=== PATIENT | male | born 1945 | race Caucasian/White ===

== ENCOUNTER → 2017-11-06 | Outpatient (REF) | payer MEDICARE, BC ==
[2017-11-06 11:47] LABS: INR 1.61; PROTHROMBIN TIME 19.6 SECONDS (12.4-14.5)
== END ==
LOC: M SFHCCLAY 09:39
DX: Z79.01 Long term (current) use of anticoagulants (principal); Z95.2 Presence of prosthetic heart valve
CPT/HCPCS: 85610

== ENCOUNTER → 2017-11-14 | Outpatient (REF) | payer MEDICARE, BC ==
[2017-11-14 12:53] LABS: INR 1.25; PROTHROMBIN TIME 15.9 SECONDS (12.4-14.5)
== END ==
LOC: M SFHCCLAY 08:53
DX: Z95.2 Presence of prosthetic heart valve (principal); Z79.01 Long term (current) use of anticoagulants
CPT/HCPCS: 85610

== ENCOUNTER → 2017-11-21 | Outpatient (REF) | payer MEDICARE, BC ==
[2017-11-21 11:37] LABS: INR 1.97; PROTHROMBIN TIME 23.1 SECONDS (12.4-14.5)
== END ==
LOC: M SFHCCLAY 09:10
DX: Z95.2 Presence of prosthetic heart valve (principal)
CPT/HCPCS: 85610

== ENCOUNTER → 2017-11-28 | Outpatient (REF) | payer MEDICARE, BC ==
[2017-11-28 12:04] LABS: INR 2.63; PROTHROMBIN TIME 29.2 SECONDS (12.4-14.5)
== END ==
LOC: M SFHCCLAY 08:20
DX: I48.2 Chronic atrial fibrillation (principal)
CPT/HCPCS: 85610

== ENCOUNTER → 2017-12-12 | Outpatient (REF) | payer MEDICARE, BC | LOC: M SFHCCLAY 09:04 | DX: Z95.2 Presence of prosthetic heart valve (principal) | CPT/HCPCS: 85610 ==

== ENCOUNTER → 2018-01-04 | Outpatient (REF) | payer MEDICARE, BC ==
[2018-01-04 11:23] LABS: INR 1.67; PROTHROMBIN TIME 20.2 SECONDS (12.4-14.5)
== END ==
LOC: M SFHCCLAY 07:19
DX: Z95.2 Presence of prosthetic heart valve (principal)
CPT/HCPCS: 85610

== ENCOUNTER → 2018-03-06 | Outpatient (REF) | payer MEDICARE, BC ==
[2018-03-06 11:45] LABS: INR 2.02; PROTHROMBIN TIME 23.6 SECONDS (12.4-14.5)
== END ==
LOC: M SFHCCLAY 07:23
DX: Z95.2 Presence of prosthetic heart valve (principal); Z79.01 Long term (current) use of anticoagulants
CPT/HCPCS: 85610

== ENCOUNTER → 2018-04-03 | Outpatient (REF) | payer MEDICARE, BC ==
[2018-04-03 12:34] LABS: INR 1.81; PROTHROMBIN TIME 21.5 SECONDS (12.4-14.5)
== END ==
LOC: M SFHCCLAY 07:22
DX: Z51.81 Encounter for therapeutic drug level monitoring (principal); Z95.2 Presence of prosthetic heart valve; I48.2 Chronic atrial fibrillation; Z79.01 Long term (current) use of anticoagulants
CPT/HCPCS: 85610

== ENCOUNTER → 2018-04-17 | Outpatient (REF) | payer MEDICARE, BC | LOC: M SFHCCLAY 06:59 | DX: I48.2 Chronic atrial fibrillation (principal) ==

== ENCOUNTER → 2018-04-24 | Outpatient (REF) | payer MEDICARE, BC ==
[2018-04-24 11:17] LABS: HEMATOCRIT 42.1 % (42.0-52.0); HEMOGLOBIN 14.3 g/dl (13.5-17.5); MEAN CORPUSCULAR HEMOGLOBIN 31.2 pg (27.0-33.0); MEAN CORPUSCULAR VOLUME 91.9 fl (80.0-96.0); PLATELET COUNT, AUTOMATED 175 10^3/uL (150-450); RED BLOOD COUNT 4.58 10^6/uL (4.30-6.10); WHITE BLOOD COUNT 8.3 10^3/uL (4.0-10.0)
[2018-04-24 11:29] LABS: PROTHROMBIN TIME 17.4 SECONDS (12.1-14.4)
[2018-04-24 11:46] LABS: ANION GAP 7 MEQ/L (8-16); BLOOD UREA NITROGEN 24 MG/DL (7-18); CALCIUM LEVEL 8.9 MG/DL (8.8-10.2); CARBON DIOXIDE LEVEL 26 MEQ/L (21-32); CHLORIDE LEVEL 106 MEQ/L (98-107); CHOLESTEROL LEVEL 166 MG/DL (<200); CHOLESTEROL RISK RATIO 2.477 (<5); CREATININE FOR GFR 1.19 MG/DL (0.70-1.30); GLOMERULAR FILTRATION RATE > 60.0 (>42); GLUCOSE, FASTING 91 MG/DL (70-100); HDL CHOLESTEROL 67 MG/DL (>40); NON-HDL-C 99 MG/DL; POTASSIUM SERUM 4.6 MEQ/L (3.5-5.1); SODIUM LEVEL 139 MEQ/L (136-145); TRIGLYCERIDES LEVEL 90 MG/DL (<150)
== END ==
LOC: M SFHCCLAY 07:33
DX: I48.2 Chronic atrial fibrillation (principal); Z51.81 Encounter for therapeutic drug level monitoring; Z79.01 Long term (current) use of anticoagulants; Z95.2 Presence of prosthetic heart valve; Z85.048 Personal history of other malignant neoplasm of rectum, rectosigmoid junction, and anus
CPT/HCPCS: 80061

== ENCOUNTER → 2018-05-08 | Outpatient (REF) | payer MEDICARE, BC ==
[2018-05-08 11:46] LABS: INR 1.79; PROTHROMBIN TIME 21.1 SECONDS (12.1-14.4)
== END ==
LOC: M SFHCCLAY 08:21
DX: I48.2 Chronic atrial fibrillation (principal); Z95.2 Presence of prosthetic heart valve; Z79.01 Long term (current) use of anticoagulants
CPT/HCPCS: 85610

== ENCOUNTER → 2018-05-22 | Outpatient (REF) | payer MEDICARE, BC ==
[2018-05-22 12:21] LABS: PROTHROMBIN TIME 25.8 SECONDS (12.1-14.4)
== END ==
LOC: M SFHCCLAY 07:19
DX: Z79.01 Long term (current) use of anticoagulants (principal)
CPT/HCPCS: 85610

== ENCOUNTER → 2018-07-10 | Outpatient (REF) | payer MEDICARE, BC ==
[2018-07-10 11:44] LABS: INR 1.67
== END ==
LOC: M SFHCCLAY 07:51
DX: Z79.01 Long term (current) use of anticoagulants (principal)
CPT/HCPCS: 85610

== ENCOUNTER → 2018-07-24 | Outpatient (REF) | payer MEDICARE, BC ==
[2018-07-24 11:37] LABS: INR 1.66; PROTHROMBIN TIME 19.9 SECONDS (12.1-14.4)
== END ==
LOC: M SFHCCLAY 07:28
DX: Z51.81 Encounter for therapeutic drug level monitoring (principal); Z79.01 Long term (current) use of anticoagulants
CPT/HCPCS: 85610

== ENCOUNTER → 2018-08-07 | Outpatient (REF) | payer MEDICARE, BC ==
[2018-08-07 12:02] LABS: INR 1.61; PROTHROMBIN TIME 19.4 SECONDS (12.1-14.4)
== END ==
LOC: M SFHCCLAY 09:25
DX: I48.2 Chronic atrial fibrillation (principal); Z79.01 Long term (current) use of anticoagulants; Z95.2 Presence of prosthetic heart valve
CPT/HCPCS: 85610

== ENCOUNTER → 2018-08-21 | Outpatient (REF) | payer MEDICARE, BC ==
[2018-08-21 12:31] LABS: INR 2.24; PROTHROMBIN TIME 25.2 SECONDS (12.1-14.4)
== END ==
LOC: M SFHCCLAY 07:42
DX: I48.2 Chronic atrial fibrillation (principal); Z51.81 Encounter for therapeutic drug level monitoring; Z79.01 Long term (current) use of anticoagulants
CPT/HCPCS: 85610

== ENCOUNTER → 2018-09-18 | Outpatient (REF) | payer MEDICARE, BC ==
[2018-09-18 12:03] LABS: INR 1.88
== END ==
LOC: M SFHCCLAY 08:56
DX: I48.2 Chronic atrial fibrillation (principal); Z79.01 Long term (current) use of anticoagulants; Z95.2 Presence of prosthetic heart valve
CPT/HCPCS: 85610

== ENCOUNTER → 2018-09-19 | Outpatient (CLI) | payer MEDICARE, BC ==
[~2018-09-19] MED LIST: AMLO10TA4 PO; ASPI1TAB PO; IMOD2CHW PO; LISI10TA4 PO; PROBCAP4 PO; TOPR50TA23 PO; VITA100067 PO
--- NOTE | 2018-09-19 10:04 | REP ---
Chest x-ray: Two views. History: Cough and shortness of breath. Comparison chest x-ray: May 20, 2013. Findings: Frontal and lateral views demonstrate that the patient is status post aortic valve replacement via median sternotomy in the interval since the last chest x-ray. A left atrial appendage clamp or clip is also visible. The heart is not enlarged. The aorta is tortuous and somewhat calcific. The lungs are symmetrically aerated and clear. Pleural angles are sharp. There is minimal linear fibrosis in the right lower lateral chest. Impression: No active disease. Status post aortic valve replacement.
== END ==
LOC: M CLY 08:09
PROVIDERS: ATTEND Family Medicine
DX: R05 Cough (principal); R06.02 Shortness of breath; Z95.2 Presence of prosthetic heart valve
CPT/HCPCS: 71046; G0463

== ENCOUNTER → 2018-10-04 | Outpatient (REF) | payer MEDICARE, BC ==
[~2018-10-04] MED LIST changes: -AMLO10TA4 PO; +AMLO10TA5 PO
[2018-10-04 12:01] LABS: INR 2.92; PROTHROMBIN TIME 31.1 SECONDS (12.1-14.4)
== END ==
LOC: M SFHCCLAY 07:33
PROVIDERS: ATTEND Family Medicine
DX: Z79.01 Long term (current) use of anticoagulants (principal)

== ENCOUNTER → 2018-10-18 | Outpatient (REF) | payer MEDICARE, BC ==
[2018-10-18 12:39] LABS: INR 2.37; PROTHROMBIN TIME 26.4 SECONDS (12.1-14.4)
== END ==
LOC: M SFHCCLAY 07:27
PROVIDERS: ATTEND Family Medicine
DX: I48.2 Chronic atrial fibrillation (principal)

== ENCOUNTER → 2018-11-15 | Outpatient (REF) | payer MEDICARE, BC ==
[2018-11-15 11:56] LABS: INR 2.45; PROTHROMBIN TIME 27.1 SECONDS (12.1-14.4)
== END ==
LOC: M SFHCCLAY 07:16
PROVIDERS: ATTEND Family Medicine
DX: Z11.59 Encounter for screening for other viral diseases (principal); Z95.2 Presence of prosthetic heart valve; Z79.01 Long term (current) use of anticoagulants

== ENCOUNTER → 2018-12-13 | Outpatient (REF) | payer MEDICARE, BC ==
[2018-12-13 12:07] LABS: INR 2.32; PROTHROMBIN TIME 25.9 SECONDS (12.1-14.4)
== END ==
LOC: M SFHCCLAY 07:26
PROVIDERS: ATTEND Family Medicine
DX: Z95.2 Presence of prosthetic heart valve (principal); Z79.01 Long term (current) use of anticoagulants; I48.2 Chronic atrial fibrillation

== ENCOUNTER → 2019-01-10 | Outpatient (REF) | payer MEDICARE, BC ==
[~2019-01-10] MED LIST changes: -ASPI1TAB PO; +ASPI81TA26 PO; +TOPR50TA PO; -TOPR50TA23 PO
[2019-01-10 11:50] LABS: INR 2.53; PROTHROMBIN TIME 27.8 SECONDS (12.1-14.4)
== END ==
LOC: M SFHCCLAY 09:32
PROVIDERS: ATTEND Family Medicine
DX: I48.2 Chronic atrial fibrillation (principal); Z79.01 Long term (current) use of anticoagulants; Z95.2 Presence of prosthetic heart valve

== ENCOUNTER → 2019-02-07 | Outpatient (REF) | payer MEDICARE, BC ==
[2019-02-07 12:54] LABS: INR 2.37; PROTHROMBIN TIME 26.3 SECONDS (12.1-14.4)
== END ==
LOC: M SFHCCLAY 07:53
PROVIDERS: ATTEND Family Medicine
DX: Z51.81 Encounter for therapeutic drug level monitoring (principal); Z79.01 Long term (current) use of anticoagulants; Z95.2 Presence of prosthetic heart valve; I48.2 Chronic atrial fibrillation

== ENCOUNTER → 2019-03-05 | Outpatient (REF) | payer MEDICARE, BC ==
[2019-03-05 11:44] LABS: INR 2.11
== END ==
LOC: M SFHCCLAY 07:26
PROVIDERS: ATTEND Family Medicine
DX: Z95.2 Presence of prosthetic heart valve (principal); I48.2 Chronic atrial fibrillation; Z79.01 Long term (current) use of anticoagulants

== ENCOUNTER → 2019-04-03 | Outpatient (REF) | payer MEDICARE, BC ==
[2019-04-03 11:47] LABS: INR 2.41
== END ==
LOC: M SFHCCLAY 07:24
PROVIDERS: ATTEND Family Medicine
DX: Z95.2 Presence of prosthetic heart valve (principal); I48.2 Chronic atrial fibrillation; Z79.01 Long term (current) use of anticoagulants

== ENCOUNTER → 2019-05-13 | Outpatient (REF) | payer MEDICARE, BC ==
[2019-05-13 13:37] LABS: HEMATOCRIT 43.7 % (42.0-52.0); HEMOGLOBIN 14.5 g/dl (13.5-17.5); MEAN CORPUSCULAR HEMOGLOBIN 32.2 pg (27.0-33.0); MEAN CORPUSCULAR HGB CONC 33.2 g/dl (32.0-36.5); MEAN CORPUSCULAR VOLUME 97.1 fl (80.0-96.0); PLATELET COUNT, AUTOMATED 168 10^3/uL (150-450)
[2019-05-13 13:45] LABS: INR 2.23; PROTHROMBIN TIME 24.5 SECONDS (11.8-14.0)
[2019-05-13 14:18] LABS: ALBUMIN 3.8 GM/DL (3.2-5.2); ALT/SGPT 25 U/L (12-78); BILIRUBIN,TOTAL 0.3 MG/DL (0.2-1.0); BLOOD UREA NITROGEN 22 MG/DL (7-18); CALCIUM LEVEL 9.1 MG/DL (8.8-10.2); CARBON DIOXIDE LEVEL 28 MEQ/L (21-32); CHLORIDE LEVEL 110 MEQ/L (98-107); CHOLESTEROL LEVEL 178 MG/DL (<200); CHOLESTEROL RISK RATIO 2.918 (<5); CREATININE FOR GFR 1.08 MG/DL (0.70-1.30); GLOMERULAR FILTRATION RATE > 60.0 (>42); GLUCOSE, FASTING 90 MG/DL (70-100); HDL CHOLESTEROL 61 MG/DL (>40); LDL CHOLESTEROL 82 MG/DL (<100); NON-HDL-C 117 MG/DL; POTASSIUM SERUM 4.5 MEQ/L (3.5-5.1); SODIUM LEVEL 143 MEQ/L (136-145); TRIGLYCERIDES LEVEL 177 MG/DL (<150)
== END ==
LOC: M SFHCCLAY 07:08
PROVIDERS: ATTEND Family Medicine
DX: H81.10 Benign paroxysmal vertigo, unspecified ear (principal); I48.2 Chronic atrial fibrillation; Z95.2 Presence of prosthetic heart valve; E78.00 Pure hypercholesterolemia, unspecified

== ENCOUNTER → 2019-06-11 | Outpatient (REF) | payer MEDICARE, BC ==
[2019-06-11 12:58] LABS: INR 2.21; PROTHROMBIN TIME 24.3 SECONDS (11.8-14.0)
== END ==
LOC: M SFHCCLAY 07:14
PROVIDERS: ATTEND Family Medicine
DX: Z95.2 Presence of prosthetic heart valve (principal); Z79.01 Long term (current) use of anticoagulants

== ENCOUNTER → 2019-07-09 | Outpatient (REF) | payer MEDICARE, BC ==
[2019-07-09 12:20] LABS: INR 1.81; PROTHROMBIN TIME 20.8 SECONDS (11.8-14.0)
== END ==
LOC: M SFHCCLAY 07:34
PROVIDERS: ATTEND Family Medicine
DX: Z95.2 Presence of prosthetic heart valve (principal); I48.20 Chronic atrial fibrillation, unspecified; Z79.01 Long term (current) use of anticoagulants

== ENCOUNTER → 2019-07-23 | Outpatient (REF) | payer MEDICARE, BC ==
[2019-07-23 12:28] LABS: INR 2.11; PROTHROMBIN TIME 23.4 SECONDS (11.8-14.0)
== END ==
LOC: M SFHCCLAY 07:39
PROVIDERS: ATTEND Family Medicine
DX: Z95.2 Presence of prosthetic heart valve (principal); I48.20 Chronic atrial fibrillation, unspecified; Z79.01 Long term (current) use of anticoagulants

== ENCOUNTER → 2019-08-20 | Outpatient (REF) | payer MEDICARE, BC ==
[2019-08-20 11:18] LABS: INR 2.42; PROTHROMBIN TIME 26.2 SECONDS (11.8-14.0)
== END ==
LOC: M SFHCCLAY 07:46
PROVIDERS: ATTEND Family Medicine
DX: I48.20 Chronic atrial fibrillation, unspecified (principal); Z95.2 Presence of prosthetic heart valve; Z79.01 Long term (current) use of anticoagulants

== ENCOUNTER → 2019-08-30 | Outpatient (REF) | payer MEDICARE, BC ==
[2019-08-30 11:52] LABS: INR 2.5; PROTHROMBIN TIME 26.9 SECONDS (11.8-14.0)
== END ==
LOC: M SFHCCLAY 08:01
PROVIDERS: ATTEND Family Medicine
DX: I48.20 Chronic atrial fibrillation, unspecified (principal); Z95.2 Presence of prosthetic heart valve; Z79.01 Long term (current) use of anticoagulants

== ENCOUNTER → 2019-10-17 | Outpatient (REF) | payer MEDICARE, BC ==
[2019-10-17 18:27] LABS: INR 2.17
== END ==
LOC: M SFHCCLAY 09:57
PROVIDERS: ATTEND Family Medicine
DX: I48.20 Chronic atrial fibrillation, unspecified (principal)

== ENCOUNTER → 2019-10-31 | Outpatient (CLI) | payer MEDICARE, BC ==
--- NOTE | 2019-10-31 10:12 | REP ---
LEFT TOES: 10/31/2019. COMPARISON: 12/24/2010. CLINICAL HISTORY: Hammertoe deformity of the left second toe. FINDINGS: There is progression of the degenerative changes at the IP joints of the toes compared to the previous study. Flexion deformity is seen of the PIP joint on the lateral view of the second toe. There are marginal osteophytes and disc space narrowing at all of the IP joints. The MTP joints show greatest degenerative changes at the first toe minimally at the other toes. Vascular calcifications noted in the foot. Impression: 1. 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 2. There are degenerative changes effecting all of the IP joints with significant progression since the 2010 study. Electronically Signed by Michoacano Franklin MD 10/31/2019 01:43 P
== END ==
LOC: M CLY 09:11
PROVIDERS: ATTEND Family Medicine
DX: M20.42 Other hammer toe(s) (acquired), left foot (principal)

== ENCOUNTER → 2019-11-14 | Outpatient (REF) | payer MEDICARE, BC ==
[2019-11-14 12:45] LABS: INR 2.68; PROTHROMBIN TIME 28.4 SECONDS (11.8-14.0)
[2019-11-14 12:54] LABS: TOTAL PROTEIN 7.7 GM/DL (6.4-8.2)
== END ==
LOC: M SFHCCLAY 07:28
PROVIDERS: ATTEND Family Medicine
DX: D89.2 Hypergammaglobulinemia, unspecified (principal); Z95.2 Presence of prosthetic heart valve; Z79.01 Long term (current) use of anticoagulants

== ENCOUNTER → 2020-03-30 | Outpatient (REF) | payer MEDICARE, BC ==
[~2020-03-30] MED LIST changes: -AMLO10TA5 PO; +AMLO1TAB25 PO
[2020-03-30 16:31] LABS: APPEARANCE, URINE CLEAR (CLEAR); BACTERIA, URINE AUTO NEGATIVE (NEGATIVE); BILIRUBIN, URINE AUTO NEGATIVE (NEGATIVE); BLOOD, URINE BLOOD NEGATIVE (NEGATIVE); COLOR, URINE YELLOW (YELLOW); GLUCOSE, URINE (UA) AUTO NEGATIVE (NEGATIVE); KETONE, URINE AUTO NEGATIVE (NEGATIVE); LEUKOCYTE ESTERASE, URINE AUTO NEGATIVE (NEGATIVE); MUCUS, URINE SMALL (NEGATIVE); NITRITE, URINE AUTO NEGATIVE (NEGATIVE); PROTEIN, URINE AUTO NEGATIVE (NEGATIVE); RBC, URINE AUTO 0 /HPF (0-3); SPECIFIC GRAVITY URINE AUTO 1.021 (1.002-1.035); SQUAMOUS EPITHELIAL CELL UR AU 0 /HPF (0-6); UROBILINOGEN, URINE AUTO 0.2 mg/dL (0.0-2.0); WBC, URINE AUTO 1 /HPF (0-3)
[2020-03-30 16:37] LABS: BASO # 0.1 10^3/uL (0.0-0.2); BASO % 0.6 % (0.0-1.0); EOS # 0.1 10^3/uL (0.0-0.5); EOS % 0.9 % (0.0-3.0); HEMOGLOBIN 13.5 g/dl (13.5-17.5); LYMPH # 2.1 10^3/uL (1.5-5.0); LYMPH % 16.3 % (24.0-44.0); MEAN CORPUSCULAR HEMOGLOBIN 31.5 pg (27.0-33.0); MEAN CORPUSCULAR HGB CONC 32.9 g/dl (32.0-36.5); MEAN CORPUSCULAR VOLUME 95.8 fl (80.0-96.0); MONO # 1.7 10^3/uL (0.0-0.8); MONO % 13.5 % (0.0-5.0); NEUTROPHILS # 8.7 10^3/uL (1.5-8.5); NEUTROPHILS % 68.2 % (36.0-66.0); PLATELET COUNT, AUTOMATED 405 10^3/uL (150-450); RED BLOOD COUNT 4.28 10^6/uL (4.30-6.10); WHITE BLOOD COUNT 12.7 10^3/uL (4.0-10.0)
[2020-03-30 16:51] LABS: ALT/SGPT 38 U/L (12-78); BILIRUBIN,TOTAL 0.5 MG/DL (0.2-1.0); BLOOD UREA NITROGEN 22 MG/DL (7-18); CALCIUM LEVEL 9.2 MG/DL (8.8-10.2); CARBON DIOXIDE LEVEL 23 MEQ/L (21-32); CHLORIDE LEVEL 104 MEQ/L (98-107); CREATININE FOR GFR 1.04 MG/DL (0.70-1.30); GLOMERULAR FILTRATION RATE > 60.0 (>42); GLUCOSE, FASTING 103 MG/DL (70-100); POTASSIUM SERUM 4.4 MEQ/L (3.5-5.1); SODIUM LEVEL 134 MEQ/L (136-145); THYROID STIMULATING HORMONE 0.484 uIU/ML (0.358-3.740); TOTAL PROTEIN 7.6 GM/DL (6.4-8.2)
== END ==
LOC: M SFHCCLAY 11:16
PROVIDERS: ATTEND Physician Assistant
DX: R35.0 Frequency of micturition (principal); Z12.5 Encounter for screening for malignant neoplasm of prostate; Z79.899 Other long term (current) drug therapy
CPT/HCPCS: 80053; 81001; 81002; 84443; 85025; 87086; G0103; G0463

== ENCOUNTER → 2020-04-02 | Outpatient (REF) | payer MEDICARE, BC ==
[2020-04-02 18:00] LABS: INR 2.51; PROTHROMBIN TIME 26.9 SECONDS (11.8-14.0)
[2020-04-02 18:03] LABS: BASO # 0.1 10^3/uL (0.0-0.2); BASO % 0.4 % (0.0-1.0); EOS % 0.2 % (0.0-3.0); HEMATOCRIT 45.5 % (42.0-52.0); HEMOGLOBIN 14.6 g/dl (13.5-17.5); LYMPH # 1.5 10^3/uL (1.5-5.0); LYMPH % 8.3 % (24.0-44.0); MEAN CORPUSCULAR HEMOGLOBIN 31.1 pg (27.0-33.0); MEAN CORPUSCULAR HGB CONC 32.1 g/dl (32.0-36.5); MEAN CORPUSCULAR VOLUME 96.8 fl (80.0-96.0); MONO # 1.7 10^3/uL (0.0-0.8); MONO % 9.8 % (0.0-5.0); NEUTROPHILS # 14.3 10^3/uL (1.5-8.5); NEUTROPHILS % 80.6 % (36.0-66.0); PLATELET COUNT, AUTOMATED 453 10^3/uL (150-450); WHITE BLOOD COUNT 17.8 10^3/uL (4.0-10.0)
[2020-04-02 18:15] LABS: ALBUMIN 3.3 GM/DL (3.2-5.2); BILIRUBIN,TOTAL 0.5 MG/DL (0.2-1.0); CALCIUM LEVEL 10.1 MG/DL (8.8-10.2); CREATININE FOR GFR 1.45 MG/DL (0.70-1.30); GLOMERULAR FILTRATION RATE 50.9 (>42); POTASSIUM SERUM 4.7 MEQ/L (3.5-5.1); TOTAL PROTEIN 8.3 GM/DL (6.4-8.2)
[2020-04-02 20:22] LABS: ERYTHROCYTE SEDIMENTATION RATE 44 mm/hr (0-20)
== END ==
LOC: M SFHCCLAY 11:11
PROVIDERS: ATTEND Family Medicine
DX: R19.7 Diarrhea, unspecified (principal); Z79.01 Long term (current) use of anticoagulants
CPT/HCPCS: 80053; 83630; 85025; 85610; 85652; 87507; G0463

== ENCOUNTER → 2020-04-22 | Outpatient (REF) | payer MEDICARE, BC ==
[2020-04-23 12:15] LABS: HEMATOCRIT 41.5 % (42.0-52.0); HEMOGLOBIN 13.2 g/dl (13.5-17.5); MEAN CORPUSCULAR HEMOGLOBIN 31.2 pg (27.0-33.0); MEAN CORPUSCULAR HGB CONC 31.8 g/dl (32.0-36.5); MEAN CORPUSCULAR VOLUME 98.1 fl (80.0-96.0); PLATELET COUNT, AUTOMATED 392 10^3/uL (150-450); RED BLOOD COUNT 4.23 10^6/uL (4.30-6.10); WHITE BLOOD COUNT 10.9 10^3/uL (4.0-10.0)
[2020-04-23 13:17] LABS: ALBUMIN 2.7 GM/DL (3.2-5.2); ALT/SGPT 46 U/L (12-78); BILIRUBIN,TOTAL 0.4 MG/DL (0.2-1.0); BLOOD UREA NITROGEN 19 MG/DL (7-18); CALCIUM LEVEL 9.4 MG/DL (8.8-10.2); CARBON DIOXIDE LEVEL 28 MEQ/L (21-32); CHLORIDE LEVEL 104 MEQ/L (98-107); CREATININE FOR GFR 1.17 MG/DL (0.70-1.30); GLOMERULAR FILTRATION RATE > 60.0 (>42); GLUCOSE, FASTING 90 MG/DL (70-100); POTASSIUM SERUM 6.1 MEQ/L (3.5-5.1); SODIUM LEVEL 139 MEQ/L (136-145)
== END ==
LOC: M SFHCCLAY 15:00
PROVIDERS: ATTEND Family Medicine
DX: R19.7 Diarrhea, unspecified (principal); I48.0 Paroxysmal atrial fibrillation

== ENCOUNTER → 2020-05-05 | Outpatient (REF) | payer MEDICARE, BC ==
[2020-05-29 12:57] LABS: BASO # 0.1 10^3/uL (0.0-0.2); BASO % 1.3 % (0.0-1.0); EOS # 0.3 10^3/uL (0.0-0.5); EOS % 5.4 % (0.0-3.0); ERYTHROCYTE SEDIMENTATION RATE 63 mm/hr (0-20); HEMATOCRIT 38.3 % (42.0-52.0); HEMOGLOBIN 12.5 g/dl (13.5-17.5); LYMPH # 1.8 10^3/uL (1.5-5.0); LYMPH % 31.5 % (24.0-44.0); MEAN CORPUSCULAR HEMOGLOBIN 31.3 pg (27.0-33.0); MEAN CORPUSCULAR HGB CONC 32.6 g/dl (32.0-36.5); MONO # 0.6 10^3/uL (0.0-0.8); MONO % 10.6 % (0.0-5.0); NEUTROPHILS # 2.9 10^3/uL (1.5-8.5); PLATELET COUNT, AUTOMATED 277 10^3/uL (150-450); RED BLOOD COUNT 3.99 10^6/uL (4.30-6.10); WHITE BLOOD COUNT 5.6 10^3/uL (4.0-10.0)
[2020-06-08 14:26] LABS: C REACTIVE PROTEIN QUANTITATIV 4.11 MG/DL (0.00-0.30); CALCIUM LEVEL 8.8 MG/DL (8.8-10.2); CREATININE FOR GFR 1.57 MG/DL (0.70-1.30); GLOMERULAR FILTRATION RATE 46.5 (>42); POTASSIUM SERUM 4.5 MEQ/L (3.5-5.1)
== END ==
LOC: M LABDRAWC 16:08
PROVIDERS: ATTEND Family Medicine
DX: M41.9 Scoliosis, unspecified (principal); Z79.899 Other long term (current) drug therapy
CPT/HCPCS: 36415; 80048; 85025; 85610; 85652; 86140; G0463

== ENCOUNTER → 2020-05-20 | Outpatient (REF) | payer MEDICARE, BC ==
[2020-06-22 10:42] LABS: INR 4.59; PROTHROMBIN TIME 44.5 SECONDS (11.8-14.0)
== END ==
LOC: M SFHCCLAY 13:01
PROVIDERS: ATTEND Family Medicine
DX: I48.91 Unspecified atrial fibrillation (principal)

== ENCOUNTER → 2020-05-22 | Outpatient (REF) | payer MEDICARE, BC ==
[2020-07-09 21:31] LABS: INR 4.75; PROTHROMBIN TIME 45.7 SECONDS (12.5-14.3)
== END ==
LOC: M SFHCCLAY 10:21
PROVIDERS: ATTEND Family Medicine
DX: I48.91 Unspecified atrial fibrillation (principal)

== ENCOUNTER → 2020-05-28 | Outpatient (REF) | payer MEDICARE, BC ==
[2020-05-28 12:28] LABS: INR 3.85; PROTHROMBIN TIME 38.7 SECONDS (11.8-14.0)
== END ==
LOC: M LABDRAWC 11:15
PROVIDERS: ATTEND Family Medicine
DX: I48.91 Unspecified atrial fibrillation (principal); Z79.01 Long term (current) use of anticoagulants

== ENCOUNTER → 2020-06-18 | Outpatient (CLI) | payer MEDICARE, BC ==
--- NOTE | 2020-06-18 11:42 | REPVR ---
PROCEDURE INFORMATION: Exam: US Retroperitoneal Limited, Kidneys Exam date and time: 06/18/2020 11:29 AM Age: 74 years old Clinical indication: Condition or disease; Kidney or ureter condition; Chronic kidney disease or failure; Not specified; Additional info: Acute renal failure TECHNIQUE: Imaging protocol: Real-time ultrasound of the retroperitoneum with image documentation. Examination was focused on the kidneys. COMPARISON: No relevant prior studies available. FINDINGS: Right kidney: The right kidney is normal in size, contour, cortical thickness, and echogenicity. No calculus or hydronephrosis is identified. No renal lesion is identified. No perinephric fluid collection is seen. The right kidney measures 10.2 cm in length. Left kidney: The left kidney is normal in size, contour, cortical thickness and echogenicity. No calculus or hydronephrosis is identified. No renal lesion is identified. No perinephric fluid collection is seen. The left kidney measures 10.1 cm in length. Bladder: The urinary bladder is well distended without evidence for calculus , masses or wall thickening. Prostate: The prostate is normal in size and echotexture with a volume of 8 cc. IMPRESSION: No renal calculus, hydronephrosis or masses are seen. Electronically signed by: Lalit Hendricks On 06/18/2020 11:42:18 AM
== END ==
LOC: M RAD 10:40
PROVIDERS: ATTEND Internal Medicine Cardiovascular Disease
DX: N17.9 Acute kidney failure, unspecified (principal)

== ENCOUNTER → 2020-07-08 | Outpatient (REF) | payer MEDICARE, BC ==
[2020-07-08 15:53] LABS: PROTHROMBIN TIME 23.1 SECONDS (12.5-14.3)
== END ==
LOC: M SFHCCLAY 11:16
PROVIDERS: ATTEND Family Medicine
DX: I48.19 Other persistent atrial fibrillation (principal); Z79.01 Long term (current) use of anticoagulants

== ENCOUNTER → 2020-09-16 | Outpatient (REF) | payer MEDICARE, BC | LOC: M SFHCCLAY 07:31 | PROVIDERS: ATTEND Family Medicine | DX: Z53.9 Procedure and treatment not carried out, unspecified reason (principal); I48.0 Paroxysmal atrial fibrillation; Z79.01 Long term (current) use of anticoagulants ==

== ENCOUNTER → 2020-09-17 | Outpatient (REF) | payer MEDICARE, BC ==
[2020-09-17 16:19] LABS: INR 2.43
== END ==
LOC: M SFHCCLAY 13:01
PROVIDERS: ATTEND Family Medicine
DX: Z23 Encounter for immunization (principal); Z79.01 Long term (current) use of anticoagulants; I48.0 Paroxysmal atrial fibrillation

== ENCOUNTER → 2020-09-23 | Outpatient (REF) | payer MEDICARE, BC | LOC: M SFHCCLAY 15:42 | PROVIDERS: ATTEND Family Medicine | DX: R19.7 Diarrhea, unspecified (principal) ==

== ENCOUNTER → 2020-12-17 | Outpatient (REF) | payer MEDICARE, BC ==
[~2020-12-17] MED LIST changes: +LISI10TA22 PO; -LISI10TA4 PO
[2020-12-17 16:31] LABS: BASO # 0.1 10^3/uL (0.0-0.2); BASO % 0.8 % (0.0-1.0); EOS # 0.5 10^3/uL (0.0-0.5); EOS % 6.6 % (0.0-3.0); HEMATOCRIT 41.9 % (42.0-52.0); HEMOGLOBIN 13.9 g/dl (13.5-17.5); LYMPH # 2.4 10^3/uL (1.5-5.0); LYMPH % 33.2 % (24.0-44.0); MEAN CORPUSCULAR HEMOGLOBIN 32.2 pg (27.0-33.0); MEAN CORPUSCULAR HGB CONC 33.2 g/dl (32.0-36.5); MONO # 0.9 10^3/uL (0.0-0.8); MONO % 12.2 % (2.0-8.0); NEUTROPHILS # 3.4 10^3/uL (1.5-8.5); NEUTROPHILS % 46.9 % (36.0-66.0); PLATELET COUNT, AUTOMATED 199 10^3/uL (150-450); RED BLOOD COUNT 4.32 10^6/uL (4.30-6.10); WHITE BLOOD COUNT 7.3 10^3/uL (4.0-10.0)
[2020-12-17 16:34] LABS: ALBUMIN 3.9 GM/DL (3.2-5.2); ALT/SGPT 16 U/L (12-78); BILIRUBIN,TOTAL 0.4 MG/DL (0.2-1.0); BLOOD UREA NITROGEN 21 MG/DL (7-18); CALCIUM LEVEL 9.3 MG/DL (8.8-10.2); CARBON DIOXIDE LEVEL 27 MEQ/L (21-32); CHLORIDE LEVEL 108 MEQ/L (98-107); FREE T4 1.11 NG/DL (0.76-1.46); GLOMERULAR FILTRATION RATE > 60.0 (>42); GLUCOSE, FASTING 92 MG/DL (70-100); POTASSIUM SERUM 4.1 MEQ/L (3.5-5.1); SODIUM LEVEL 141 MEQ/L (136-145); THYROID STIMULATING HORMONE 0.846 uIU/ML (0.358-3.740); TOTAL PROTEIN 7.4 GM/DL (6.4-8.2); URIC ACID 5.2 MG/DL (3.5-7.2)
== END ==
LOC: M SFHCCLAY 12:13
PROVIDERS: ATTEND Family Medicine
DX: E79.0 Hyperuricemia without signs of inflammatory arthritis and tophaceous disease (principal); I48.0 Paroxysmal atrial fibrillation; Z95.3 Presence of xenogenic heart valve
CPT/HCPCS: 80053; 84439; 84443; 84550; 85025; G0463

== ENCOUNTER → 2021-04-14 | Outpatient (CLI) | payer MEDICARE, BC ==
[~2021-04-14] MED LIST changes: +AMOX250C PO; +D31000TA2 PO; +FEBU40TA4 PO; +LISI-898 PO; +LISI2.5T2 PO; +METO1TAB32 PO; +TORS100T PO; +WARF-23 PO
== END ==
LOC: M LABSMTC 10:26
PROVIDERS: ATTEND Anesthesiology
DX: Z20.828 Contact with and (suspected) exposure to other viral communicable diseases (principal); Z11.59 Encounter for screening for other viral diseases

== ENCOUNTER 2021-04-19 10:27 | Day surgery (SDC) | payer MEDICARE, BC ==
[~2021-04-19] VITALS: Ht 180.3 cm; Wt 92.1 kg
[~2021-04-19 10:27] MED LIST changes: +NS 1,000 ML IV ONE
--- NOTE | 2021-04-19 11:53 | ROOR ---
Patient Name: Everett Lorenz Procedure Date: 04/19/2021 11:28 AM Date of : 1945 Age: 75 Room: [facility] Gender: Male Note Status: Finalized Procedure: Total Colonoscopy to Cecum Indications: High risk colon cancer surveillance: Personal history of colon cancer Providers: Garrick Gilbert MD Referring MD: Christiano Stratton MD Requesting Provider: Medicines: Monitored Anesthesia Care Complications: No immediate complications. Procedure: Pre-Anesthesia Assessment: - The heart rate, respiratory rate, oxygen saturations, blood pressure, adequacy of pulmonary ventilation, and response to care were monitored throughout the procedure. The Colonoscope was introduced through the anus and advanced to the cecum, identified by appendiceal orifice and ileocecal valve. The colonoscopy was performed without difficulty. The patient tolerated the procedure well. The quality of the bowel preparation was excellent. Findings: The perianal and digital rectal examinations were normal. Localized mild inflammation characterized by congestion (edema), erosions, erythema and loss of vascularity was found at the anus. The exam was otherwise without abnormality on direct and retroflexion views. Impression: - Localized mild inflammation was found at the anus secondary to proctitis. - The examination was otherwise normal on direct and retroflexion views. - No specimens collected. - The exam was otherwise normal to the cecum. Recommendation: - Patient has a contact number available for emergencies. The signs and symptoms of potential delayed complications were discussed with the patient. Return to normal activities tomorrow. Written discharge instructions were provided to the patient. - High fiber diet. - Discharge patient to home. - Continue present medications. - Use Canasa 1000 mg suppository 1 per rectum QHS. - Repeat colonoscopy in 5 years for surveillance. - Return to referring physician. - The findings and recommendations were discussed with the patient's family. Procedure Code(s): --- Professional --- G0105, Colorectal cancer screening; colonoscopy on individual at high risk Diagnosis Code(s): --- Professional --- Z85.038, Personal history of other malignant neoplasm of large intestine K62.89, Other specified diseases of anus and rectum CPT copyright 2019 [employer]. All rights reserved. The codes documented in this report are preliminary and upon radiation safety officer review may be revised to meet current compliance requirements. Garrick Gilbert MD Garrick Gilbert MD 04/19/2021 11:52:49 AM Electronically signed by Garrick Gilbert MD Number of Addenda: 0 Note Initiated On: 04/19/2021 11:28 AM Estimated Blood Loss: Estimated blood loss: none.
[2021-04-19 12:14] VITALS: BP 104/67
== END 2021-04-19 12:15 | disposition home or self-care (01) ==
LOC: M OPP 10:27
PROVIDERS: ATTEND Internal Medicine Gastroenterology
DX: Z12.11 Encounter for screening for malignant neoplasm of colon (principal); Z85.048 Personal history of other malignant neoplasm of rectum, rectosigmoid junction, and anus; Z80.0 Family history of malignant neoplasm of digestive organs; K62.89 Other specified diseases of anus and rectum; K62.7 Radiation proctitis; Z79.01 Long term (current) use of anticoagulants; Z79.899 Other long term (current) drug therapy; Z88.8 Allergy status to other drugs, medicaments and biological substances; Z91.048 Other nonmedicinal substance allergy status; Z92.21 Personal history of antineoplastic chemotherapy; Z92.3 Personal history of irradiation; Z01.812 Encounter for preprocedural laboratory examination; Z20.828 Contact with and (suspected) exposure to other viral communicable diseases
CPT/HCPCS: G0105; U0002

== ENCOUNTER → 2021-07-26 | Outpatient (REF) | payer MEDICARE, BC ==
[~2021-07-26] MED LIST changes: -LISI2.5T2 PO; +LISI2.5T9 PO; -NS 1,000 ML IV ONE
[2021-07-26 12:03] LABS: INR 3.05; PROTHROMBIN TIME 31.8 SECONDS (12.7-14.5)
== END ==
LOC: M SFHCCLAY 08:04
PROVIDERS: ATTEND Nurse Practitioner Family
DX: I48.20 Chronic atrial fibrillation, unspecified (principal); Z79.01 Long term (current) use of anticoagulants; Z95.2 Presence of prosthetic heart valve

== ENCOUNTER → 2021-07-26 | Outpatient (REF) | payer MEDICARE, BC ==
[2021-07-26 12:24] LABS: CREATININE FOR GFR 1.31 MG/DL (0.70-1.30); GLOMERULAR FILTRATION RATE 57.1 (>42); POTASSIUM SERUM 4.6 MEQ/L (3.5-5.1)
== END ==
LOC: M LABDRAWC 11:09
PROVIDERS: ATTEND Internal Medicine Cardiovascular Disease
DX: I50.23 Acute on chronic systolic (congestive) heart failure (principal); Z79.01 Long term (current) use of anticoagulants

== ENCOUNTER → 2022-03-10 | Outpatient (REF) | payer MEDICARE, BC ==
[~2022-03-10] MED LIST changes: -D31000TA2 PO; -LISI-898 PO; +LISI5TAB11 PO; +VITA100093 PO
[2022-03-10 11:56] LABS: INR 2.83; PROTHROMBIN TIME 30.1 SECONDS (12.7-14.5)
== END ==
LOC: M SFHCCLAY 08:11
PROVIDERS: ATTEND Family Medicine
DX: I48.91 Unspecified atrial fibrillation (principal); Z79.01 Long term (current) use of anticoagulants

== ENCOUNTER → 2022-03-10 | Outpatient (REF) | payer MEDICARE, BC ==
[2022-03-10 11:53] LABS: CALCIUM LEVEL 9.5 MG/DL (8.8-10.2); CREATININE FOR GFR 1.84 MG/DL (0.70-1.30); GLOMERULAR FILTRATION RATE 38.5 (>42); POTASSIUM SERUM 4.4 MEQ/L (3.5-5.1)
== END ==
LOC: M LABDRAWC 11:15
PROVIDERS: ATTEND Internal Medicine Cardiovascular Disease
DX: I50.23 Acute on chronic systolic (congestive) heart failure (principal)

== ENCOUNTER → 2022-04-07 | Outpatient (REF) | payer MEDICARE, BC ==
[2022-04-07 11:35] LABS: APPEARANCE, URINE CLEAR (CLEAR); BACTERIA, URINE AUTO NEGATIVE (NEGATIVE); BILIRUBIN, URINE AUTO NEGATIVE (NEGATIVE); BLOOD, URINE BLOOD NEGATIVE (NEGATIVE); COLOR, URINE YELLOW (YELLOW); GLUCOSE, URINE (UA) AUTO 1+ mg/dL (NEGATIVE); KETONE, URINE AUTO NEGATIVE (NEGATIVE); LEUKOCYTE ESTERASE, URINE AUTO NEGATIVE (NEGATIVE); NITRITE, URINE AUTO NEGATIVE (NEGATIVE); PROTEIN, URINE AUTO NEGATIVE (NEGATIVE); RBC, URINE AUTO 1 /HPF (0-3); SPECIFIC GRAVITY URINE AUTO 1.013 (1.002-1.035); SQUAMOUS EPITHELIAL CELL UR AU 0 /HPF (0-6); UROBILINOGEN, URINE AUTO 0.2 mg/dL (0.0-2.0); WBC, URINE AUTO 0 /HPF (0-3)
[2022-04-07 12:02] LABS: CALCIUM LEVEL 9.5 MG/DL (8.8-10.2); CREATININE FOR GFR 2.36 MG/DL (0.70-1.30); GLOMERULAR FILTRATION RATE 28.9 (>42); POTASSIUM SERUM 4.3 MEQ/L (3.5-5.1)
== END ==
LOC: M SFHCCLAY 08:51
PROVIDERS: ATTEND Family Medicine
DX: I11.9 Hypertensive heart disease without heart failure (principal)

== ENCOUNTER → 2022-04-12 | Outpatient (REF) | payer MEDICARE, BC ==
[2022-04-12 12:47] LABS: CALCIUM LEVEL 9.6 MG/DL (8.8-10.2); CREATININE FOR GFR 1.93 MG/DL (0.70-1.30); GLOMERULAR FILTRATION RATE 36.4 (>42); POTASSIUM SERUM 5.5 MEQ/L (3.5-5.1)
== END ==
LOC: M SFHCCLAY 08:19
PROVIDERS: ATTEND Family Medicine
DX: N18.4 Chronic kidney disease, stage 4 (severe) (principal)

== ENCOUNTER → 2022-05-12 | Outpatient (REF) | payer MEDICARE, BC ==
[2022-05-12 11:39] LABS: INR 2.48; PROTHROMBIN TIME 27.2 SECONDS (12.7-14.5)
[2022-05-12 12:13] LABS: CALCIUM LEVEL 9.1 MG/DL (8.8-10.2); CREATININE FOR GFR 1.4 MG/DL (0.70-1.30); GLOMERULAR FILTRATION RATE 52.7 (>42); POTASSIUM SERUM 4.8 MEQ/L (3.5-5.1)
== END ==
LOC: M SFHCCLAY 07:03
PROVIDERS: ATTEND Family Medicine
DX: I48.91 Unspecified atrial fibrillation (principal); Z79.01 Long term (current) use of anticoagulants

== ENCOUNTER → 2023-05-03 | Outpatient (CLI) | payer MEDICARE, BC | LOC: M CLY 08:47 | PROVIDERS: ATTEND Family Medicine | DX: M16.11 Unilateral primary osteoarthritis, right hip (principal) ==

== ENCOUNTER → 2023-08-04 | Outpatient (REF) | payer MEDICARE, BC ==
[2023-08-04 17:23] LABS: BASO # 0.1 10^3/uL (0.0-0.2); BASO % 1.3 % (0.0-1.0); EOS # 0.4 10^3/uL (0.0-0.5); EOS % 4.7 % (0.0-3.0); HEMATOCRIT 47.4 % (42.0-52.0); HEMOGLOBIN 15.6 g/dl (13.5-17.5); LYMPH # 2.1 10^3/uL (1.5-5.0); LYMPH % 28.1 % (24.0-44.0); MEAN CORPUSCULAR HEMOGLOBIN 32.6 pg (27.0-33.0); MEAN CORPUSCULAR HGB CONC 32.9 g/dl (32.0-36.5); MEAN CORPUSCULAR VOLUME 99.2 fl (80.0-96.0); MONO # 1.3 10^3/uL (0.0-0.8); MONO % 17.1 % (2.0-8.0); NEUTROPHILS # 3.7 10^3/uL (1.5-8.5); NEUTROPHILS % 48.7 % (36.0-66.0); PLATELET COUNT, AUTOMATED 194 10^3/uL (150-450); RED BLOOD COUNT 4.78 10^6/uL (4.30-6.10); WHITE BLOOD COUNT 7.5 10^3/uL (4.0-10.0)
[2023-08-04 17:41] LABS: ALBUMIN 3.6 G/DL (3.2-5.2)
[2023-08-04 17:48] LABS: PERCENT SATURATION 28.5 % (19.7-50.0)
[2023-08-04 17:51] LABS: FERRITIN 587.6 NG/ML (10.5-307.3)
== END ==
LOC: M LABDRAWC 17:00
PROVIDERS: ATTEND Orthopaedic Surgery
DX: Z01.818 Encounter for other preprocedural examination (principal); M25.551 Pain in right hip; M16.11 Unilateral primary osteoarthritis, right hip

== ENCOUNTER → 2023-08-14 | Outpatient (REF) | payer MEDICARE, BC ==
[2023-08-14 17:41] LABS: BASO # 0.1 10^3/uL (0.0-0.2); BASO % 0.8 % (0.0-1.0); EOS # 0.2 10^3/uL (0.0-0.5); EOS % 2.7 % (0.0-3.0); HEMATOCRIT 44.2 % (42.0-52.0); HEMOGLOBIN 14.3 g/dl (13.5-17.5); LYMPH % 23.1 % (24.0-44.0); MEAN CORPUSCULAR HEMOGLOBIN 31.8 pg (27.0-33.0); MEAN CORPUSCULAR HGB CONC 32.4 g/dl (32.0-36.5); MEAN CORPUSCULAR VOLUME 98.2 fl (80.0-96.0); MONO # 0.9 10^3/uL (0.0-0.8); MONO % 10.2 % (2.0-8.0); NEUTROPHILS # 5.6 10^3/uL (1.5-8.5); NEUTROPHILS % 62.9 % (36.0-66.0); PLATELET COUNT, AUTOMATED 262 10^3/uL (150-450); WHITE BLOOD COUNT 8.8 10^3/uL (4.0-10.0)
[2023-08-14 17:51] LABS: INR 3.2; PROTHROMBIN TIME 31.5 SECONDS (12.5-14.5)
[2023-08-14 17:52] LABS: PARTIAL THROMBOPLASTIN TIME 46.2 SECONDS (24.8-34.2)
[2023-08-14 17:56] LABS: CALCIUM LEVEL 9.5 MG/DL (8.3-10.6); CREATININE FOR GFR 1.87 MG/DL (0.70-1.30); GLOMERULAR FILTRATION RATE 37.7 (>42)
== END ==
LOC: M SFHCCLAY 14:31
PROVIDERS: ATTEND Family Medicine
DX: M10.9 Gout, unspecified (principal); I48.91 Unspecified atrial fibrillation; I11.9 Hypertensive heart disease without heart failure

== ENCOUNTER → 2023-08-15 | Outpatient (REF) | payer MEDICARE, BC ==
[2023-08-15 18:11] LABS: APPEARANCE, URINE CLEAR (CLEAR); BACTERIA, URINE AUTO NEGATIVE (NEGATIVE); BILIRUBIN, URINE AUTO NEGATIVE (NEGATIVE); BLOOD, URINE BLOOD NEGATIVE (NEGATIVE); COLOR, URINE YELLOW (YELLOW); GLUCOSE, URINE (UA) AUTO 1+ mg/dL (NEGATIVE); KETONE, URINE AUTO NEGATIVE (NEGATIVE); LEUKOCYTE ESTERASE, URINE AUTO NEGATIVE (NEGATIVE); NITRITE, URINE AUTO NEGATIVE (NEGATIVE); PROTEIN, URINE AUTO NEGATIVE (NEGATIVE); RBC, URINE AUTO 0 /HPF (0-3); SPECIFIC GRAVITY URINE AUTO 1.023 (1.002-1.035); SQUAMOUS EPITHELIAL CELL UR AU 0 /HPF (0-6); UROBILINOGEN, URINE AUTO 0.2 mg/dL (0.0-2.0); WBC, URINE AUTO 0 /HPF (0-3)
== END ==
LOC: M SFHCCLAY 07:49
PROVIDERS: ATTEND Family Medicine
DX: I11.9 Hypertensive heart disease without heart failure (principal)

== ENCOUNTER → 2023-10-27 | Outpatient (REF) | payer MEDICARE, BC ==
[2023-10-27 18:08] LABS: HEMATOCRIT 39.7 % (42.0-52.0); MEAN CORPUSCULAR HEMOGLOBIN 32.6 pg (27.0-33.0); MEAN CORPUSCULAR HGB CONC 32.7 g/dl (32.0-36.5); MEAN CORPUSCULAR VOLUME 99.5 fl (80.0-96.0); PLATELET COUNT, AUTOMATED 210 10^3/uL (150-450); RED BLOOD COUNT 3.99 10^6/uL (4.30-6.10)
[2023-10-27 18:11] LABS: CALCIUM LEVEL 9.4 MG/DL (8.3-10.6); CREATININE FOR GFR 1.48 MG/DL (0.70-1.30); GLOMERULAR FILTRATION RATE 49.3 (>42); POTASSIUM SERUM 4.6 MMOL/L (3.5-5.1)
== END ==
LOC: M LABDRAWC 17:16
PROVIDERS: ATTEND Nurse Practitioner Family
DX: I50.20 Unspecified systolic (congestive) heart failure (principal)

== ENCOUNTER → 2023-11-08 | Outpatient (CLI) | payer MEDICARE, BC | LOC: M CLY 11:15 | PROVIDERS: ATTEND Specialist/Technologist Athletic Trainer | DX: M16.11 Unilateral primary osteoarthritis, right hip (principal); Z47.1 Aftercare following joint replacement surgery ==

== ENCOUNTER → 2024-03-08 | Outpatient (REF) | payer MEDICARE, BC ==
[2024-03-08 18:47] LABS: IRON (FE) 114 UG/DL (65-175); PERCENT SATURATION 38.1 % (19.7-50.0); TOTAL IRON BINDING CAPACITY 299 UG/DL (250-425)
[2024-03-08 18:50] LABS: RHEUMATOID FACTOR QUANT < 3.5 IU/ML (<14)
[2024-03-12 23:12] LABS: ANA (HEP2) Positive (.); CYCLIC CITRULLINATED PEPTIDE 4 units (0-19)
== END ==
LOC: M SFHCCLAY 10:39
PROVIDERS: ATTEND Family Medicine
DX: M25.50 Pain in unspecified joint (principal)

== ENCOUNTER → 2024-03-11 | Outpatient (CLI) | payer MEDICARE, BC | LOC: M CLY 11:06 | PROVIDERS: ATTEND Family Medicine | DX: M25.551 Pain in right hip (principal); Z96.641 Presence of right artificial hip joint; M19.041 Primary osteoarthritis, right hand ==

== ENCOUNTER → 2024-06-18 | Outpatient (REF) | payer MEDICARE, BC ==
[2024-06-18 11:44] LABS: INR 2.45; PROTHROMBIN TIME 25.7 SECONDS (12.5-14.5)
== END ==
LOC: M SFHCCLAY 10:43
PROVIDERS: ATTEND Nurse Practitioner Family
DX: Z79.01 Long term (current) use of anticoagulants (principal)

== ENCOUNTER → 2025-04-16 | Outpatient (REF) | payer MEDICARE, BC ==
[2025-04-16 13:06] LABS: CALCIUM LEVEL 9.6 MG/DL (8.3-10.6); CARBON DIOXIDE LEVEL 25.0 MMOL/L (20-31); CHLORIDE LEVEL 108.0 MMOL/L (98-107); CREATININE FOR GFR 1.96 MG/DL (0.70-1.30); GLOMERULAR FILTRATION RATE 34.6 (>42); POTASSIUM SERUM 5.3 MMOL/L (3.5-5.1); SODIUM LEVEL 143.0 MMOL/L (136-145)
== END ==
LOC: M SFHCCLAY 09:56
PROVIDERS: ATTEND Nurse Practitioner Family
DX: Z01.818 Encounter for other preprocedural examination (principal); M25.551 Pain in right hip; Z86.19 Personal history of other infectious and parasitic diseases; Z87.440 Personal history of urinary (tract) infections

== ENCOUNTER → 2025-07-22 | Outpatient (REF) | payer MEDICARE, BC ==
[2025-07-23 20:03] LABS: IRON (FE) 61.0 UG/DL (65-175); PERCENT SATURATION 21.7 % (19.7-50.0)
[2025-07-23 20:06] LABS: VITAMIN B12 LEVEL 298.0 PG/ML (211-911)
== END ==
LOC: M LAB REF 17:20
PROVIDERS: ATTEND Internal Medicine Nephrology
DX: N18.9 Chronic kidney disease, unspecified (principal); D63.1 Anemia in chronic kidney disease

== ENCOUNTER 2025-08-04 12:08 | Inpatient (IN) | payer MEDICARE, BC ==
[~2025-08-04] VITALS: Ht 177.8 cm; Wt 88.5 kg
[2025-08-04] MEDS ORDERED: LOPE-39 PO (12:50)
[2025-08-04] MEDS ORDERED: B-12100010 PO (12:50)
[2025-08-04] MEDS ORDERED: ENTR1TAB7 PO (12:50)
[2025-08-04] MEDS ORDERED: WARF4TAB51 PO (12:50)
[2025-08-04] MEDS ORDERED: FARX1TAB5 PO (12:50)
[2025-08-04] MEDS ORDERED: OXYC1TAB23 PO (12:51)
[2025-08-04] MEDS ORDERED: META28.32 PO (12:51)
[2025-08-04 15:37] LABS: BASO # 0.1 10^3/uL (0.0-0.2); BASO % 0.3 % (0.0-1.0); EOS # 0.0 10^3/uL (0.0-0.5); EOS % 0.2 % (0.0-3.0); LYMPH # 1.2 10^3/uL (1.5-5.0); LYMPH % 5.6 % (24.0-44.0); MONO # 1.9 10^3/uL (0.0-0.8); MONO % 8.9 % (2.0-8.0); NEUTROPHILS # 18.0 10^3/uL (1.5-8.5); NEUTROPHILS % 84.2 % (36.0-66.0); PLATELET COUNT, AUTOMATED 464 10^3/uL (150-450)
[2025-08-04 15:58] LABS: ALT/SGPT 15.0 U/L (7.0-40); AST/SGOT 44.0 U/L (<34); CALCIUM LEVEL 9.1 MG/DL (8.3-10.6); CARBON DIOXIDE LEVEL 21.0 MMOL/L (20-31); CHLORIDE LEVEL 100.0 MMOL/L (98-107); CREATININE FOR GFR 2.29 MG/DL (0.70-1.30); GLOMERULAR FILTRATION RATE 28.7 (>42); POTASSIUM SERUM 5.1 MMOL/L (3.5-5.1); SODIUM LEVEL 136.0 MMOL/L (136-145)
[2025-08-04 16:14] LABS: INR 2.39
[2025-08-04 16:29] LABS: C REACTIVE PROTEIN QUANTITATIV 37.65 MG/DL (<1.0)
[2025-08-04] MEDS: NS (Normal Saline) 0.9% 2,860 ML in IV 1 EA IV ONE (16:40)
[2025-08-04] MEDS: cefTRIAXone SOD 2 GM in DEXTROSE 5% (D5W) ADV/MINI-BAG 50 ML IV ONE (17:36)
[2025-08-04 19:12] LABS: KETONE, URINE AUTO RFX NEGATIVE (NEGATIVE); LEUKOCYTE ESTERASE UR AUTO RFX NEGATIVE (NEGATIVE); NITRITE, URINE AUTO RFX NEGATIVE (NEGATIVE); RBC, URINE AUTO RFX 1 /HPF (0-3); SQUAM EPITHELIAL CELL UR AURFX 0 /HPF (0-6); WBC, URINE AUTO RFX 0 /HPF (0-3)
[2025-08-04] MEDS ORDERED: METO1TAB33 PO (20:07)
[2025-08-04] MEDS ORDERED: FERR32TA PO (20:07)
[2025-08-04] MEDS ORDERED: ALLO300T2 PA (20:07)
[2025-08-04] MEDS ORDERED: HOME MED LIST COMPLETE! XX SCH (20:10)
[2025-08-04] MEDS: PIPERACILLIN/TAZOBACTAM SOD 3.375 GM in DEXTROSE 5% (D5W) ADV/MINI-BAG 50 ML IV ONE (20:11)
[2025-08-05] VITALS (71 sets, daily range): BP systolic 72–140; BP diastolic 50–74; TEMP 97–98.3; O2SAT 91–99
[2025-08-05] MEDS ORDERED: PERCOCET 5MG/325MG TAB PO PRN ×2 (00:15)
[2025-08-05] MEDS ORDERED: PIPERACILLIN/TAZOBACTAM SOD 3.375 GM in DEXTROSE 5% (D5W) ADV/MINI-BAG 50 ML IV SCH (00:15)
[2025-08-05] MEDS: VANCOMYCIN HCL 1,750 MG, VIAL MATE ADAPTER 1 EACH in NS 500 ML IV ONE (01:04)
[2025-08-05] MEDS: CLINDAMYCIN 150 MG CAPSULE PO SCH (01:05)
[2025-08-05 02:01] LABS: BASO # 0.1 10^3/uL (0.0-0.2); BASO % 0.3 % (0.0-1.0); EOS # 0.0 10^3/uL (0.0-0.5); EOS % 0.0 % (0.0-3.0); LYMPH # 1.5 10^3/uL (1.5-5.0); LYMPH % 8.2 % (24.0-44.0); MONO # 1.6 10^3/uL (0.0-0.8); MONO % 8.6 % (2.0-8.0); NEUTROPHILS # 15.5 10^3/uL (1.5-8.5); NEUTROPHILS % 82.2 % (36.0-66.0); PLATELET COUNT, AUTOMATED 430 10^3/uL (150-450)
[2025-08-05 02:30] LABS: ALT/SGPT 15.0 U/L (7.0-40); AST/SGOT 46.0 U/L (<34); CALCIUM LEVEL 8.3 MG/DL (8.3-10.6); CARBON DIOXIDE LEVEL 23.0 MMOL/L (20-31); CHLORIDE LEVEL 104.0 MMOL/L (98-107); CREATININE FOR GFR 2.19 MG/DL (0.70-1.30); GLOMERULAR FILTRATION RATE 30.3 (>42); POTASSIUM SERUM 4.2 MMOL/L (3.5-5.1); SODIUM LEVEL 139.0 MMOL/L (136-145)
[2025-08-05] MEDS: PIPERACILLIN/TAZOBACTAM SOD 2.25 GM in DEXTROSE 5% (D5W) ADV/MINI-BAG 50 ML IV SCH (03:18)
[2025-08-05] MEDS: LR 1,000 ML IV SCH (04:15)
[2025-08-05 04:37] LABS: CPK CREATINE PHOSPHOKINASE 429.0 U/L (46-171)
[2025-08-05 06:07] LABS: INR 2.96
[2025-08-05] MEDS: NOREPINEPHRINE 4MG IN D5 250ML 4 MG in IV 1 EA IV SCH (08:30)
[2025-08-05] MEDS: DOCUSATE SODIUM 100 MG CAPSULE PO SCH (09:00)
[2025-08-05] MEDS: PIPERACILLIN/TAZOBACTAM SOD 3.375 GM in DEXTROSE 5% (D5W) ADV/MINI-BAG 50 ML IV SCH (11:20)
[2025-08-05] MEDS: PHYTONADIONE 5 MG TAB PO ONE (11:45)
[2025-08-05 12:34] LABS: BASO # 0.1 10^3/uL (0.0-0.2); BASO % 0.4 % (0.0-1.0); EOS # 0.1 10^3/uL (0.0-0.5); EOS % 0.4 % (0.0-3.0); LYMPH # 1.0 10^3/uL (1.5-5.0); LYMPH % 5.4 % (24.0-44.0); MONO # 1.5 10^3/uL (0.0-0.8); MONO % 8.6 % (2.0-8.0); NEUTROPHILS # 15.1 10^3/uL (1.5-8.5); NEUTROPHILS % 84.5 % (36.0-66.0); PLATELET COUNT, AUTOMATED 496 10^3/uL (150-450)
[2025-08-05] MEDS: CLINDAMYCIN 900 MG in IV 1 EA IV SCH (13:03)
[2025-08-05] MEDS: VANCOMYCIN HCL 750 MG, VIAL MATE ADAPTER 1 EACH in NS 250 ML IV SCH (14:08)
[2025-08-05] MEDS ORDERED: VANCOMYCIN HCL 1,000 MG, VIAL MATE ADAPTER 1 EACH in NS 250 ML IV SCH (15:00)
[2025-08-06] VITALS (86 sets, daily range): BP systolic 74–125; BP diastolic 43–79; TEMP 97.4–99.1; O2SAT 88–99
[2025-08-06 00:24] LABS: BASO # 0.1 10^3/uL (0.0-0.2); BASO % 0.5 % (0.0-1.0); EOS # 0.1 10^3/uL (0.0-0.5); EOS % 0.5 % (0.0-3.0); LYMPH # 1.3 10^3/uL (1.5-5.0); LYMPH % 7.4 % (24.0-44.0); MONO # 1.6 10^3/uL (0.0-0.8); MONO % 9.5 % (2.0-8.0); NEUTROPHILS # 14.0 10^3/uL (1.5-8.5); NEUTROPHILS % 81.7 % (36.0-66.0); PLATELET COUNT, AUTOMATED 519 10^3/uL (150-450)
[2025-08-06 07:40] LABS: INR 4.04
[2025-08-06 07:44] LABS: VANCOMYCIN RANDOM 16.8 UG/ML
[2025-08-06 07:45] LABS: CALCIUM LEVEL 8.8 MG/DL (8.3-10.6); CARBON DIOXIDE LEVEL 22.0 MMOL/L (20-31); CHLORIDE LEVEL 104.0 MMOL/L (98-107); CREATININE FOR GFR 1.82 MG/DL (0.70-1.30); GLOMERULAR FILTRATION RATE 37.8 (>42); POTASSIUM SERUM 3.7 MMOL/L (3.5-5.1); SODIUM LEVEL 140.0 MMOL/L (136-145)
[2025-08-06] MEDS: PANTOPRAZOLE 40MG TAB PO SCH (08:45)
[2025-08-06] MEDS ORDERED: PHYTONADIONE 10MG/ML 1ML INJECTION SC ONE (09:15)
[2025-08-06] MEDS ORDERED: PHYTONADIONE INJection 10 MG in NS 50 ML IV ONE ×2 (09:45→12:00)
[2025-08-06] MEDS: VANCOMYCIN HCL 750 MG, VIAL MATE ADAPTER 1 EACH in NS 250 ML IV SCH (10:16)
[2025-08-06 12:09] LABS: BASO # 0.1 10^3/uL (0.0-0.2); BASO % 0.5 % (0.0-1.0); EOS # 0.2 10^3/uL (0.0-0.5); EOS % 1.1 % (0.0-3.0); LYMPH # 1.3 10^3/uL (1.5-5.0); LYMPH % 8.5 % (24.0-44.0); MONO # 1.5 10^3/uL (0.0-0.8); MONO % 10.0 % (2.0-8.0); NEUTROPHILS # 11.8 10^3/uL (1.5-8.5); NEUTROPHILS % 79.4 % (36.0-66.0); PLATELET COUNT, AUTOMATED 496 10^3/uL (150-450)
[2025-08-06] MEDS: PHYTONADIONE INJection 10 MG in NS 50 ML IV ONE (12:28)
[2025-08-07] VITALS (68 sets, daily range): BP systolic 65–116; BP diastolic 42–75; TEMP 97–97.7; O2SAT 89–100
[2025-08-07 05:39] LABS: BASO # 0.1 10^3/uL (0.0-0.2); BASO % 0.6 % (0.0-1.0); EOS # 0.5 10^3/uL (0.0-0.5); EOS % 3.4 % (0.0-3.0); LYMPH # 1.4 10^3/uL (1.5-5.0); LYMPH % 9.8 % (24.0-44.0); MONO # 1.7 10^3/uL (0.0-0.8); MONO % 11.8 % (2.0-8.0); NEUTROPHILS # 10.3 10^3/uL (1.5-8.5); NEUTROPHILS % 73.6 % (36.0-66.0); PLATELET COUNT, AUTOMATED 517 10^3/uL (150-450)
[2025-08-07 05:59] LABS: INR 2.34
[2025-08-07] MEDS: PANTOPRAZOLE 40MG VIAL IV SCH (10:32)
[2025-08-07 17:42] LABS: INR 2.42
[2025-08-07] MEDS ORDERED: PHYTONADIONE INJection 10 MG in NS 50 ML IV ONE ×2 (20:00)
[2025-08-07] MEDS: PHYTONADIONE INJection 10 MG in NS 50 ML IV ONE (20:15)
[2025-08-08] VITALS (78 sets, daily range): BP systolic 70–133; BP diastolic 45–78; TEMP 97–98.4; O2SAT 91–100
[2025-08-08 04:10] LABS: BASO # 0.1 10^3/uL (0.0-0.2); BASO % 0.7 % (0.0-1.0); EOS # 0.6 10^3/uL (0.0-0.5); EOS % 4.8 % (0.0-3.0); LYMPH # 1.4 10^3/uL (1.5-5.0); LYMPH % 11.1 % (24.0-44.0); MONO # 1.2 10^3/uL (0.0-0.8); MONO % 9.5 % (2.0-8.0); NEUTROPHILS # 9.1 10^3/uL (1.5-8.5); NEUTROPHILS % 73.2 % (36.0-66.0); PLATELET COUNT, AUTOMATED 524 10^3/uL (150-450)
[2025-08-08 04:31] LABS: INR 1.84
[2025-08-08 07:47] LABS: CALCIUM LEVEL 8.4 MG/DL (8.3-10.6); CARBON DIOXIDE LEVEL 22.0 MMOL/L (20-31); CHLORIDE LEVEL 106.0 MMOL/L (98-107); CREATININE FOR GFR 1.13 MG/DL (0.70-1.30); GLOMERULAR FILTRATION RATE 66.9 (>42); POTASSIUM SERUM 3.4 MMOL/L (3.5-5.1); SODIUM LEVEL 141.0 MMOL/L (136-145)
[2025-08-08] MEDS: VANCOMYCIN HCL 500 MG in DEXTROSE 5% (D5W) MINI-BAG PLU 100 ML IV ONE (11:10)
[2025-08-08] MEDS: POTASSIUM CHLORIDE 10MEQ SR TABLET PO ONE ×2 (15:12→18:42)
[2025-08-08] MEDS ORDERED: ENOXAPARIN 100 MG/1 ML SYRINGE (J1650 PER 10MG) SC ONE (21:00)
[2025-08-08] MEDS: ENOXAPARIN 100 MG/1 ML SYRINGE (J1650 PER 10MG) SC SCH (21:11)
[2025-08-09] VITALS (95 sets, daily range): BP systolic 84–130; BP diastolic 48–82; TEMP 97.9–98.3; O2SAT 84–100
[2025-08-09 04:53] LABS: BASO # 0.1 10^3/uL (0.0-0.2); BASO % 1.1 % (0.0-1.0); EOS # 0.8 10^3/uL (0.0-0.5); EOS % 6.5 % (0.0-3.0); LYMPH # 1.6 10^3/uL (1.5-5.0); LYMPH % 12.7 % (24.0-44.0); MONO # 1.2 10^3/uL (0.0-0.8); MONO % 10.1 % (2.0-8.0); NEUTROPHILS # 8.4 10^3/uL (1.5-8.5); NEUTROPHILS % 68.5 % (36.0-66.0); PLATELET COUNT, AUTOMATED 636 10^3/uL (150-450)
[2025-08-09 05:13] LABS: INR 1.58
[2025-08-09 09:47] LABS: VANCOMYCIN LEVEL TROUGH 11.7 UG/ML (10.0-20.0)
[2025-08-09] MEDS: METAMUCIL PACKET PO PRN (09:49)
[2025-08-09] MEDS: VANCOMYCIN HCL 1,250 MG, VIAL MATE ADAPTER 1 EACH in NS 250 ML IV SCH (09:59)
[2025-08-09] MEDS: PERCOCET 5MG/325MG TAB PO PRN (10:01)
[2025-08-09 10:02] LABS: CALCIUM LEVEL 7.9 MG/DL (8.3-10.6); CARBON DIOXIDE LEVEL 22.0 MMOL/L (20-31); CHLORIDE LEVEL 107.0 MMOL/L (98-107); CREATININE FOR GFR 1.02 MG/DL (0.70-1.30); GLOMERULAR FILTRATION RATE 75.7 (>42); POTASSIUM SERUM 3.8 MMOL/L (3.5-5.1); SODIUM LEVEL 138.0 MMOL/L (136-145)
[2025-08-09] MEDS: PHYTONADIONE 5 MG TAB PO ONE (10:25)
[2025-08-09 14:05] LABS: C REACTIVE PROTEIN QUANTITATIV 15.78 MG/DL (<1.0)
[2025-08-10] VITALS (29 sets, daily range): BP systolic 83–111; BP diastolic 50–80; TEMP 97.1–97.9; O2SAT 93–99
[2025-08-10] MEDS ORDERED: NOREPINEPHRINE 4MG IN D5 250ML 4 MG in IV 1 EA IV SCH (17:55)
[2025-08-11] VITALS (11 sets, daily range): BP systolic 90–108; BP diastolic 56–63; TEMP 97.1–97.4; O2SAT 96–98
[2025-08-11 04:55] LABS: BASO # 0.1 10^3/uL (0.0-0.2); BASO % 1.1 % (0.0-1.0); EOS # 0.8 10^3/uL (0.0-0.5); EOS % 8.9 % (0.0-3.0); LYMPH # 1.5 10^3/uL (1.5-5.0); LYMPH % 16.6 % (24.0-44.0); MONO # 0.8 10^3/uL (0.0-0.8); MONO % 8.8 % (2.0-8.0); NEUTROPHILS # 5.7 10^3/uL (1.5-8.5); NEUTROPHILS % 63.1 % (36.0-66.0); PLATELET COUNT, AUTOMATED 533 10^3/uL (150-450)
[2025-08-11 05:16] LABS: INR 1.43
[2025-08-11 05:18] LABS: VANCOMYCIN RANDOM 17.4 UG/ML
[2025-08-11 05:19] LABS: ALT/SGPT 12.0 U/L (7.0-40); AST/SGOT 32.0 U/L (<34); CALCIUM LEVEL 8.1 MG/DL (8.3-10.6); CARBON DIOXIDE LEVEL 25.0 MMOL/L (20-31); CHLORIDE LEVEL 106.0 MMOL/L (98-107); CREATININE FOR GFR 1.24 MG/DL (0.70-1.30); GLOMERULAR FILTRATION RATE 59.9 (>42); POTASSIUM SERUM 4.2 MMOL/L (3.5-5.1); SODIUM LEVEL 140.0 MMOL/L (136-145)
[2025-08-11] MEDS: METOPROLOL SUCC. 100 MG *XL* TAB PO SCH (08:50)
[2025-08-11] MEDS ORDERED: ISOVUE-370 76% 100 ML VIAL As Ordered ONE (16:08)
[2025-08-11] MEDS ORDERED: ISOVUE-300 61% 100 ML VIAL IV SCH (16:10)
[2025-08-11] MEDS: SODIUM CHLORIDE 0.9% 1000 ML XX SCH (16:10)
[2025-08-11] MEDS: NS (Normal Saline) 0.9% 1,000 ML IV SCH (16:10)
[2025-08-11] MEDS: MIDAZOLAM INJ 2 MG/2 ML VIAL IV PRN (17:02)
[2025-08-11] MEDS: LIDOCAINE 1% MDV 20 ML VIAL SC STA (17:24)
[2025-08-11] MEDS ORDERED: ONDANSETRON 4MG/2ML VIAL IV PRN (17:35)
[2025-08-11] MEDS: LINEZOLID 600 MG TABLET PO SCH (20:18)
[2025-08-12] VITALS (8 sets, daily range): BP systolic 94–109; BP diastolic 58–74; TEMP 97.1–98.2; O2SAT 96–100
[2025-08-12 05:37] LABS: INR 1.23
[2025-08-12] MEDS ORDERED: ENOXAPARIN 100 MG/1 ML SYRINGE (J1650 PER 10MG) SC SCH (09:00)
[2025-08-12] MEDS: ENOXAPARIN 40 MG/0.4 ML SYRINGE (J1650 PER 10MG) SC SCH (10:42)
[2025-08-12] MEDS: ACETAMINOPHEN 325 MG TAB PO PRN (14:16)
[2025-08-12] MEDS: FLUCONAZOLE 100 MG TAB PO SCH (16:19)
[2025-08-13] VITALS: BP 108/59; TEMP 97.2; O2SAT 94
[2025-08-13 04:00] VITALS: BP 108/64; TEMP 97; O2SAT 96
[2025-08-13 08:00] VITALS: BP 121/68; TEMP 98.3; O2SAT 99
[2025-08-13 08:17] LABS: BASO # 0.1 10^3/uL (0.0-0.2); BASO % 0.9 % (0.0-1.0); EOS # 0.4 10^3/uL (0.0-0.5); EOS % 4.2 % (0.0-3.0); LYMPH # 1.6 10^3/uL (1.5-5.0); LYMPH % 16.6 % (24.0-44.0); MONO # 0.9 10^3/uL (0.0-0.8); MONO % 9.0 % (2.0-8.0); NEUTROPHILS # 6.6 10^3/uL (1.5-8.5); NEUTROPHILS % 68.0 % (36.0-66.0); PLATELET COUNT, AUTOMATED 469 10^3/uL (150-450)
[2025-08-13 08:38] LABS: CALCIUM LEVEL 8.4 MG/DL (8.3-10.6); CARBON DIOXIDE LEVEL 24.0 MMOL/L (20-31); CHLORIDE LEVEL 108.0 MMOL/L (98-107); CREATININE FOR GFR 1.25 MG/DL (0.70-1.30); GLOMERULAR FILTRATION RATE 59.3 (>42); POTASSIUM SERUM 3.8 MMOL/L (3.5-5.1); SODIUM LEVEL 143.0 MMOL/L (136-145)
[2025-08-13] MEDS: PANTOPRAZOLE 40MG TAB PO SCH (09:17)
[2025-08-13] MEDS: TORSEMIDE 100 MG TAB PO SCH (09:18)
[2025-08-13] MEDS: METAMUCIL PACKET PO PRN (10:18)
[2025-08-13 12:00] VITALS: BP 102/62; TEMP 97; O2SAT 99
[2025-08-13 16:00] VITALS: BP 99/60; TEMP 97.5; O2SAT 99
[2025-08-13 20:00] VITALS: BP 86/51; TEMP 97.1; O2SAT 95
[2025-08-14] VITALS: BP 92/57; TEMP 97.3; O2SAT 94
[2025-08-14 04:00] VITALS: BP 99/59; TEMP 96.8; O2SAT 95
[2025-08-14 05:06] LABS: BASO # 0.1 10^3/uL (0.0-0.2); BASO % 1.2 % (0.0-1.0); EOS # 0.3 10^3/uL (0.0-0.5); EOS % 2.5 % (0.0-3.0); LYMPH # 2.0 10^3/uL (1.5-5.0); LYMPH % 17.4 % (24.0-44.0); MONO # 1.2 10^3/uL (0.0-0.8); MONO % 10.2 % (2.0-8.0); NEUTROPHILS # 7.9 10^3/uL (1.5-8.5); NEUTROPHILS % 67.4 % (36.0-66.0); PLATELET COUNT, AUTOMATED 536 10^3/uL (150-450)
[2025-08-14 05:28] LABS: CALCIUM LEVEL 9.2 MG/DL (8.3-10.6); CARBON DIOXIDE LEVEL 31.0 MMOL/L (20-31); CHLORIDE LEVEL 100.0 MMOL/L (98-107); CREATININE FOR GFR 1.46 MG/DL (0.70-1.30); GLOMERULAR FILTRATION RATE 49.2 (>42); POTASSIUM SERUM 3.6 MMOL/L (3.5-5.1); SODIUM LEVEL 140.0 MMOL/L (136-145)
[2025-08-14 08:00] VITALS: BP 106/71; TEMP 98.9; O2SAT 100
[2025-08-14 12:00] VITALS: BP 94/66; TEMP 97.1; O2SAT 100
[2025-08-14] MEDS: LOPERAMIDE 2 MG CAPLET PO SCH (15:11)
[2025-08-14 16:00] VITALS: BP 102/59; TEMP 97.1; O2SAT 99
[2025-08-14 20:00] VITALS: BP 99/61; TEMP 97.6; O2SAT 99
[2025-08-15] VITALS (8 sets, daily range): BP systolic 84–111; BP diastolic 55–69; TEMP 96.5–98.2; O2SAT 94–100
[2025-08-15 07:09] LABS: BASO # 0.2 10^3/uL (0.0-0.2); BASO % 1.4 % (0.0-1.0); EOS # 0.3 10^3/uL (0.0-0.5); EOS % 2.4 % (0.0-3.0); LYMPH # 2.1 10^3/uL (1.5-5.0); LYMPH % 19.7 % (24.0-44.0); MONO # 1.2 10^3/uL (0.0-0.8); MONO % 11.2 % (2.0-8.0); NEUTROPHILS # 6.9 10^3/uL (1.5-8.5); NEUTROPHILS % 63.8 % (36.0-66.0); PLATELET COUNT, AUTOMATED 497 10^3/uL (150-450)
[2025-08-15 07:32] LABS: CALCIUM LEVEL 8.6 MG/DL (8.3-10.6); CARBON DIOXIDE LEVEL 31.0 MMOL/L (20-31); CHLORIDE LEVEL 97.0 MMOL/L (98-107); CREATININE FOR GFR 1.74 MG/DL (0.70-1.30); GLOMERULAR FILTRATION RATE 39.9 (>42); POTASSIUM SERUM 3.0 MMOL/L (3.5-5.1); SODIUM LEVEL 140.0 MMOL/L (136-145)
[2025-08-15] MEDS: NS (Normal Saline) 0.9% 1,000 ML IV SCH (08:38)
[2025-08-15] MEDS: POTASSIUM CHLORIDE 10MEQ SR TABLET PO ONE (08:41)
[2025-08-15 10:47] LABS: C REACTIVE PROTEIN QUANTITATIV 8.58 MG/DL (<1.0)
[2025-08-16] VITALS (7 sets, daily range): BP systolic 110–142; BP diastolic 57–76; TEMP 97.9–98.4; O2SAT 97–99
[2025-08-16 07:09] LABS: CALCIUM LEVEL 8.1 MG/DL (8.3-10.6); CARBON DIOXIDE LEVEL 28.0 MMOL/L (20-31); CHLORIDE LEVEL 102.0 MMOL/L (98-107); CREATININE FOR GFR 1.45 MG/DL (0.70-1.30); GLOMERULAR FILTRATION RATE 49.6 (>42); POTASSIUM SERUM 3.3 MMOL/L (3.5-5.1); SODIUM LEVEL 142.0 MMOL/L (136-145)
[2025-08-16] MEDS: METOPROLOL SUCC. 50 MG *XL* TAB PO SCH (08:16)
[2025-08-16] MEDS: POTASSIUM CHLORIDE 10MEQ SR TABLET PO ONE ×3 (08:17→12:34)
[2025-08-16] MEDS: FLUZONE HIGH DOSE (65+) 0.5 ML SYRINGE (25-26) IM.IMMUN ONE (10:23)
[2025-08-17 03:55] VITALS: BP 121/71; TEMP 98.2; O2SAT 96
[2025-08-17 06:48] LABS: CALCIUM LEVEL 8.4 MG/DL (8.3-10.6); CARBON DIOXIDE LEVEL 27.0 MMOL/L (20-31); CHLORIDE LEVEL 104.0 MMOL/L (98-107); CREATININE FOR GFR 1.39 MG/DL (0.70-1.30); GLOMERULAR FILTRATION RATE 52.2 (>42); POTASSIUM SERUM 3.8 MMOL/L (3.5-5.1); SODIUM LEVEL 142.0 MMOL/L (136-145)
[2025-08-17 08:00] VITALS: BP 127/78; TEMP 98.3; O2SAT 97
[2025-08-17] MEDS: ENTRESTO 24-26 MG TABLET (SACUBITRIL/VALSARTAN) PO SCH (10:35)
[2025-08-17 12:00] VITALS: BP 116/73; TEMP 98.4; O2SAT 100
[2025-08-17 16:00] VITALS: BP 103/64; TEMP 98.4; O2SAT 97
[2025-08-17 19:34] VITALS: BP 106/63; TEMP 98.3; O2SAT 100
[2025-08-17 23:59] VITALS: BP 117/73; TEMP 98.2; O2SAT 95
[2025-08-18 04:13] VITALS: BP 122/70; TEMP 98.1; O2SAT 94
[2025-08-18 08:03] VITALS: BP 130/74; TEMP 98.4; O2SAT 96
[2025-08-18] MEDS: CYANOCOBALAMIN 500 MCG TAB PO SCH (08:53)
[2025-08-18 08:54] VITALS: BP 123/72
[2025-08-18 08:54] LABS: CALCIUM LEVEL 8.6 MG/DL (8.3-10.6); CARBON DIOXIDE LEVEL 28.0 MMOL/L (20-31); CHLORIDE LEVEL 105.0 MMOL/L (98-107); CREATININE FOR GFR 1.39 MG/DL (0.70-1.30); GLOMERULAR FILTRATION RATE 52.2 (>42); POTASSIUM SERUM 3.7 MMOL/L (3.5-5.1); SODIUM LEVEL 143.0 MMOL/L (136-145)
[2025-08-18 11:37] VITALS: BP 120/73; TEMP 98.1; O2SAT 100
[2025-08-18] MEDS ORDERED: METO1TAB7 PO (12:18)
[2025-08-18] MEDS ORDERED: ENTR1TAB PO (12:18)
[2025-08-18] MEDS ORDERED: FLUC100T3 PO (12:19)
[2025-08-18] MEDS ORDERED: LEVO1TAB39 PO (12:19)
== END 2025-08-18 14:53 | disposition home health service (06) | DRG 871 ==
LOC: M ED 12:08 → EEVIPCON 23:56 → M ED INP 23:56 → M PCU 08-05 01:25 → M ICU 08-05 07:58 → M MSPAV 08-15 00:57
PROVIDERS: ADMIT Student in an Organized Health Care Education/Training Program; ATTEND Student in an Organized Health Care Education/Training Program
PROC: 0Q9 Lower Bones, Drainage (ICD-10-PCS; principal; 2025-08-11 12:30)
DX: A41.9 Sepsis, unspecified organism (principal); R65.21 Severe sepsis with septic shock; K68.19 Other retroperitoneal abscess; I50.22 Chronic systolic (congestive) heart failure; I13.0 Hypertensive heart and chronic kidney disease with heart failure and stage 1 through stage 4 chronic kidney disease, or unspecified chronic kidney disease; N17.9 Acute kidney failure, unspecified; I48.21 Permanent atrial fibrillation; L03.116 Cellulitis of left lower limb; N18.32 Chronic kidney disease, stage 3b; E78.5 Hyperlipidemia, unspecified; Z92.21 Personal history of antineoplastic chemotherapy; Z92.3 Personal history of irradiation; Z85.038 Personal history of other malignant neoplasm of large intestine; Z79.01 Long term (current) use of anticoagulants; Z96.641 Presence of right artificial hip joint; K76.0 Fatty (change of) liver, not elsewhere classified; Z95.2 Presence of prosthetic heart valve; M10.9 Gout, unspecified; G89.29 Other chronic pain; E66.9 Obesity, unspecified; Z79.899 Other long term (current) drug therapy; Z88.8 Allergy status to other drugs, medicaments and biological substances; I49.5 Sick sinus syndrome

== ENCOUNTER → 2025-08-22 | Outpatient (CLI) | payer MEDICARE, BC ==
[~2025-08-22] MED LIST changes: +ALLO300T2 PA; +B-12100010 PO; +ENTR1TAB PO; +ENTR1TAB7 PO; +FARX1TAB5 PO; +FERR32TA PO; +FLUC100T3 PO; +ISOVUE-300 61% 100 ML VIAL As Ordered ONE; +LEVO1TAB39 PO; +LIDOCAINE 1% MDV 20 ML VIAL IM ONE; +LOPE-39 PO; +META28.32 PO; +METO1TAB33 PO; +METO1TAB7 PO; +OXYC1TAB23 PO; +WARF4TAB51 PO
[2025-08-22 11:45] VITALS: BP 93/53; TEMP 98.2; O2SAT 100
== END ==
LOC: M IRPRO 11:30
PROVIDERS: ATTEND Radiology Diagnostic Radiology
DX: K68.19 Other retroperitoneal abscess (principal); C20 Malignant neoplasm of rectum
CPT/HCPCS: 36415; 49424; 76000; 76080; 80048; 85027; C1729; Q9967

== ENCOUNTER → 2025-08-22 | Outpatient (CLI) | payer MEDICARE, BC ==
[~2025-08-22] MED LIST changes: -ISOVUE-300 61% 100 ML VIAL As Ordered ONE; -LIDOCAINE 1% MDV 20 ML VIAL IM ONE
[2025-08-22 13:13] LABS: PLATELET COUNT, AUTOMATED 323 10^3/uL (150-450)
[2025-08-22 13:36] LABS: CALCIUM LEVEL 8.6 MG/DL (8.3-10.6); CARBON DIOXIDE LEVEL 25.0 MMOL/L (20-31); CHLORIDE LEVEL 103.0 MMOL/L (98-107); CREATININE FOR GFR 1.55 MG/DL (0.70-1.30); GLOMERULAR FILTRATION RATE 45.8 (>42); POTASSIUM SERUM 3.6 MMOL/L (3.5-5.1); SODIUM LEVEL 141.0 MMOL/L (136-145)
== END ==
LOC: M LAB 12:48
PROVIDERS: ATTEND Student in an Organized Health Care Education/Training Program
DX: C20 Malignant neoplasm of rectum (principal)